=== PATIENT | female | born 1960 | race Caucasian/White ===

== ENCOUNTER → 2018-12-17 | Outpatient (CLI) | payer MEDICARE, OTHER ==
--- NOTE | 2018-12-17 15:37 | RAD ---
History: Routine screening. Technique: Bilateral digital mammographic routine views were obtained with CAD - computer aided detection. Comparison: None. Findings: Breast Tissue Density B: There are scattered areas of fibroglandular densities. Group of calcifications seen in the outer upper left breast. 2 small masses are seen in the outer left breast approximately 15 cm from the nipple on cc view. Right breast demonstrates no mammographic abnormality. Impression: Left breast abnormalities. See below for recommendations. BI-RADS Category 0: Incomplete. Ultrasound of the left outer breast for evaluation of couple of round masses and magnification views of the left anterior breast for evaluation of calcifications recommended. Your mammogram demonstrates that you have dense breast tissue, which could hide abnormalities, and if you have other risk factors for breast cancer that have been identified, you might benefit from supplemental screening tests that may be suggested by your ordering physician. Dense breast tissue, in and of itself, is a relatively common condition. This information is not provided to cause undue concern, but rather to raise your awareness and to promote discussion with your physician regarding the presence of other risk factors, in addition to dense breast tissue. A report of your mammography results will be sent to you and your physician. You should contact your physician if you have any questions or concerns regarding this report. A mammogram does not have 100% sensitivity and therefore a negative imaging study should not delay further work up of a suspicious abnormality. The patient will receive a letter with the results in the mail. Patient information is entered into the reminder system with a target due date for the next screening mammogram. The patient will receive a reminder. "Our facility is accredited by the [employer] Mammography [employer]."
== END | disposition home or self-care (01) ==
LOC: MAMMO 12:42
PROVIDERS: ATTEND Physician Assistant
DX: Z12.31 Encounter for screening mammogram for malignant neoplasm of breast (principal); N64.89 Other specified disorders of breast
CPT/HCPCS: 77067

== ENCOUNTER → 2019-01-01 | Outpatient (CLI) | payer MEDICARE ==
--- NOTE | 2019-01-01 15:17 | RAD ---
DATE: January 01, 2019 EXAM: DIGITAL DIAGNOSTIC LT, BREAST LEFT SONOGRAPHY HISTORY: Further evaluation of calcifications and nodules of the left breast. COMPARISON: Screening mammogram dated December 17, 2018 This study was interpreted with the benefit of Computerized Aided Detection (CAD). DIAGNOSTIC LEFT-SIDED MAMMOGRAPHY 2-D digital 90 degree mediolateral view of the left breast was performed. 2-D digital magnification compression views of the left breast were performed in the CC and MLO projections. FINDINGS: Again seen is a group of calcifications within the upper-outer quadrant of the left breast which demonstrate a coarse appearance and therefore most likely are benign. No layering calcifications are seen. Again seen are 2 small nodules in the lateral aspect of the left breast which are located within the upper portion and in the 90 degrees view and there is another nodule located at the 3 clock position of the left breast. Left breast sonography will be performed. LEFT BREAST SONOGRAPHY: High-resolution sonography of the upper outer quadrant of the left breast was performed from the 12:00 to 4:00 position. Multiple similar hypoechoic nodules are seen with thin echogenic borders and therefore most likely are benign. This includes the followin:00 5 cm from the nipple - 4 mm 2:00 5 cm from the nipple - 4 mm 2:00 5 cm from the nipple - 4 mm 3:00 4 cm from the nipple - 3 mm 3:00 6 cm from the nipple - 6 mm. IMPRESSION: Probable benign calcifications and nodules of the left breast. Recommend 6 month follow-up 2-D mammogram with magnification compression views and left breast sonography for further evaluation. BI-RADS CATEGORY: 3 PROBABLE BENIGN-SHORT TERM F/U RECOMMENDED FOLLOW-UP: 6M 6 MONTH FOLLOW-UP PQRS compliance statement: Patient information was entered into a reminder system with a target due date July 03, 2019 for the next mammogram and ultrasound. Mammography is a sensitive method for finding small breast cancers, but it does not detect them all and is not a substitute for careful clinical examination. A negative mammogram does not negate a clinically suspicious finding and should not result in delay in biopsying a clinically suspicious abnormality. "Our facility is accredited by the [employer]."
== END | disposition home or self-care (01) ==
LOC: MAMMO 13:04
PROVIDERS: ATTEND Physician Assistant
DX: N63.20 Unspecified lump in the left breast, unspecified quadrant (principal); R92.1 Mammographic calcification found on diagnostic imaging of breast
CPT/HCPCS: 76641; 77065

== ENCOUNTER → 2020-08-26 | Outpatient (CLI) | payer MEDICARE ==
--- NOTE | 2020-08-26 16:23 | RAD ---
INDICATION: Reason: BILATERAL KNEE PAIN, PREVIOUS SURGERY / Spl. Instructions: / History: COMPARISON: None. IMPRESSION: 3 views of the right and one view of left knee obtained. Post left knee arthroplasty changes. There i s an apparent osseous excrescence off of the left distal femur with a nonspecific appearance with pos sible causes including osteochondroma or callus formation from prior fracture. Post right knee arthro plasty changes as well as a couple of screws at the proximal tibia. No acute fracture or dislocation. Edema at Hoffa's fat pad. Electronically signed by: Dani Slaughter MD (08/26/2020 4:21 PM) [id number]
== END ==
LOC: RAD 12:42
PROVIDERS: ATTEND Orthopaedic Surgery
DX: M25.561 Pain in right knee (principal); Z96.651 Presence of right artificial knee joint; Z96.652 Presence of left artificial knee joint
CPT/HCPCS: 73560; 73565

== ENCOUNTER → 2021-05-04 | Outpatient (CLI) | payer MEDICARE ==
--- NOTE | 2021-05-04 13:39 | RAD ---
BILATERAL DIGITAL SCREENING 2-D MAMMOGRAM INDICATION: Routine screening. COMPARISON: 12/17/2018 Interpretation was made using CAD. FINDINGS: Breast Density: There are scattered areas of fibroglandular density. RIGHT BREAST: No suspicious masses, calcifications or areas of architectural distortion are seen. LEFT BREAST: There is an approximately 1.9 cm diameter focal asymmetry left upper outer breast mid to posterior third approximately 9 cm from the nipple with associated microcalcifications. IMPRESSION: 1. Left upper outer breast focal asymmetry with microcalcifications. ASSESSMENT: BI-RADS 0: Incomplete -- Need Additional Imaging Evaluation and/or Prior Mammograms for C omparison. RECOMMENDATION: Left breast diagnostic mammogram with spot views and left breast ultrasound. The facility will notify the patient of the results via mail. Patient information will be entered int o the mammography reminder system with a target recall date for the next mammogram. A reminder letter will be generated by the facility. Electronically signed by: Lai Vidales MD (05/04/2021 1:37 PM) [id number]
== END ==
LOC: MAMMO 08:52
PROVIDERS: ATTEND Physician Assistant
DX: Z12.31 Encounter for screening mammogram for malignant neoplasm of breast (principal)
CPT/HCPCS: 77067

== ENCOUNTER → 2021-05-06 | Outpatient (CLI) | payer MEDICARE ==
--- NOTE | 2021-05-06 16:59 | RAD ---
Ultrasound carotid soft tissue nonvascular HISTORY: Right cheek swelling Sonographic examination of the right parotid was performed and multiple static images were obtained. The left parotid was scanned for comparison. There is no focal abnormality. There is no mass or fluid collection. IMPRESSION: Negative examination. Electronically signed by: Joshua Alcantara III, MD (05/06/2021 4:57 PM) [facility]
== END ==
LOC: US 10:35
PROVIDERS: ATTEND Physician Assistant
DX: K11.20 Sialoadenitis, unspecified (principal)
CPT/HCPCS: 76881

== ENCOUNTER → 2021-05-25 | Outpatient (CLI) | payer MEDICARE ==
--- NOTE | 2021-05-25 14:23 | RAD ---
EXAM: Left breast diagnostic mammogram; left breast sonogram. HISTORY: 60-year-old female presents for evaluation of abnormality within the left breast demonstrate d on a screening mammogram dated 05/04/2021. TECHNIQUE: Full-field digital and spot compression views of the left breast are obtained. Sonographic imaging of the left breast and axilla was also performed. COMPARISON: 05/04/2021 BREAST PARENCHYMAL DENSITY: Level B - Scattered fibroglandular densities. FINDINGS: There is an irregular mass within the 2:00 position of the left breast at mid to posterior depth. This contains punctate calcifications. Sonographic imaging of the left breast demonstrates a 1.6 cm hypoechoic mass with irregular margins a nd internal echogenic foci likely due to calcification at the 2:00 position 7 cm from the nipple. Thi s corresponds with the mammographic abnormality of concern. There is a left axillary lymph node which maintains a fatty hilum and cortex within normal limits. No convincing suspicious axillary lymph nod e is seen. IMPRESSION: 1. 1.6 cm suspicious mass within the 2:00 position of the left breast 7 cm from the nipple. Sonograph ic guided biopsy is recommended. 2. BI-RADS Category 5: Highly suggestive of malignancy. Sonographic guided biopsy is recommended, as noted above. These findings and recommendations were discussed with the patient and communicated to Austin farris in the referring physician office at 1415 hours on 05/25/2021. If your mammogram demonstrates that you have dense breast tissue, which could hide abnormalities, and if you have other risk factors for breast cancer that have been identified, you might benefit from s upplemental screening tests that may be suggested by your ordering physician. Dense breast tissue, i n and of itself, is a relatively common condition. This information is not provided to cause undue c oncern, but rather to raise your awareness and to promote discussion with your physician regarding th e presence of other risk factors, in addition to dense breast tissue. A report of your mammography re sults will be sent to you and your physician. You should contact your physician if you have any ques tions or concerns regarding this report. Mammography is a sensitive method for finding small breast cancers, but it does not detect them all a nd is not a substitute for careful clinical examination. A negative mammogram does not negate a clin ically suspicious finding and should not result in delay in biopsying a clinically suspicious abnorma lity. PQRS compliance statement - Patient information was entered into a reminder system with a target due date for the next mammogram. "Our facility is accredited by the [employer] Mammography [employer]." Electronically signed by: Shweta Reyes MD (05/25/2021 2:21 PM) [id number]
== END ==
LOC: MAMMO 13:05
PROVIDERS: ATTEND Physician Assistant
DX: R92.2 Inconclusive mammogram (principal)
CPT/HCPCS: 76642; 77065